=== PATIENT | male | born 1940 | race Caucasian/White ===

== ENCOUNTER 2018-03-02 08:12 | Emergency (ER) | payer OTHER, MEDICARE ==
--- NOTE | 2018-03-02 09:37 | EDPHY ---
H & P Time Seen by Provider: 03/02/18 08:59 HPI/ROS: CHIEF COMPLAINT: Head injury HISTORY OF PRESENT ILLNESS: 77-year-old male presents to the emergency department after he [place] the [place] just [place] to [place]. The patient is here visiting for the graduation and was walking down some steps and then there was no handrail and he tripped and fell and hit his head on the concrete steps. He did not lose consciousness. He does complain of a headache. He has some mild neck pain. He denies chest pain or difficulty breathing. He denies any presyncopal symptoms prior to his fall. He also complains of injury to the left hand. He states his tetanus shot is current. He was able to get up and walk around after the incident occurred just prior to arrival. He did have an episode of epistaxis which has since resolved. REVIEW OF SYSTEMS: Constitutional: No fever, no chills. Eyes: No double or blurry vision. ENT: No sore throat. Respiratory: No cough, no shortness of breath. Cardiac: No chest pain. Gastrointestinal: No abdominal pain, vomiting or diarrhea. Genitourinary: No dysuria. Musculoskeletal: Neck pain, no back pain. Skin: Lacerations, abrasions. No rashes. Neurological: Mild headache. Past Medical/Surgical History: Atrial fibrillation, pacemaker Social History: , visiting from [place] Smoking Status: Former smoker Physical Exam: General Appearance: Alert, no distress. Mentating normally and answering questions appropriately. 150/102, heart rate 71 Eyes: Pupils equal and round. Extraocular motions are all intact. ENT: Mouth: Mucous membranes moist. Hearing aid present in the left ear. Dried blood noted in his nose. Respiratory: No wheezing, rhonchi, or rales, lungs are clear to auscultation. Cardiovascular: Regular rate and rhythm. Gastrointestinal: Abdomen is soft and nontender, no masses, no rebound or guarding, bowel sounds normal. Neurological: Alert and oriented x 3, cranial nerves II through XII grossly intact Skin: Large irregular stellate laceration to the central forehead. There is also a smaller 1 cm laceration over the bridge of the nose. Warm and dry, no rashes. Musculoskeletal: Mild diffuse tenderness with palpation along cervical spine. He does have pain with range of motion of his neck. Nontender to palpate along thoracic or lumbar spine. Extremities: Full range of motion and no peripheral edema. Pain with palpation over the left 5th metacarpal. No rotational deformities noted. Some superficial skin tear is a and abrasions to the lateral dorsal aspect of his left hand. Hematoma noted to the anterior left mid thigh. No palpable bony tenderness or deformity in his lower extremities. Psychiatric: Patient is oriented X 3, there is no agitation. Constitutional: Initial Vital Signs Temperature (C) 36.9 C 03/02/18 08:15 Heart Rate 71 03/02/18 08:15 Respiratory Rate 18 03/02/18 08:15 Blood Pressure 150/102 H 03/02/18 08:15 O2 Sat (%) 99 03/02/18 08:15 O2 Delivery Mode Room Air Allergies/Adverse Reactions: No Known Allergies Allergy (Unverified 03/02/18 08:18) Home Medications: Medication Instructions Recorded Eliquis 03/02/18 Metoprolol Succinate 03/02/18 Vitamin D2 (*) 03/02/18 Medical Decision Making - Diagnostics Imaging: I viewed and interpreted images myself Procedures: Laceration repair #1. Verbal consent was obtained from the patient. The 4 cm irregular stellate laceration on the anterior forehead was anesthetized using 1% lidocaine with epinephrine. The wound was irrigated with saline, draped and explored to its base with a gloved finger. There were no deep structures involved. No tendon injury was identified. The wound was repaired with 6 0 Prolene, 10 sutures. The wound repair was complex. The procedure was performed by myself. Laceration repair #2. Verbal consent was obtained from the patient. The 1 cm laceration on the bridge of nose was anesthetized using 1% lidocaine with epinephrine. The wound was irrigated with saline, draped and explored to its base with a gloved finger. There were no deep structures involved. The wound was repaired with 6 0 Prolene, 3 sutures. The wound repair was simple. The procedure was performed by myself. ED Course/Re-evaluation: 77-year-old male presents to the emergency department after mechanical fall sustaining facial lacerations. The wounds were repaired, see procedure note. CT imaging of the head and cervical spine reveal no intracranial bleeding or fractures. Patient did have a small cyst noted near 1 of the ventricles. Radiologist recommended follow-up with his primary care provider. No additional imaging studies were needed in the emergency department. He was given closed-head injury precautions. Instructed to return if any change in symptoms or felt worse in any way. Differential Diagnosis: Head injury including but not limited to concussion, skull fracture, intraparenchymal contusion, subarachnoid, subdural and epidural hematoma. Neck pain including but not limited to muscular pain, herniated disc, spine fracture Departure - Departure Disposition: Home, Routine, Self-Care Clinical Impression: Forehead laceration Qualifiers: Encounter type: initial encounter Qualified Code(s): S01.81XA - Laceration without foreign body of other part of head, initial encounter Head injury Qualifiers: Encounter type: initial encounter Qualified Code(s): S09.90XA - Unspecified injury of head, initial encounter Condition: Good Instructions: Cervical Strain (ED), Care For Your Stitches (ED), Laceration (ED ), Head Injury (ED), Acute Wounds (ED) Additional Instructions: Wound Care Follow-Up: Removal of sutures in 5 days. Suture removal is complimentary in uncomplicated cases. Infection or abnormal findings would require reevaluation by the MD. In that case, you may be billed. Return to the emergency department if you notices any signs or symptoms of infection such as redness, swelling, increased pain, fever, purulent drainage. Return also if you develop worsening headache, vomiting, altered mental status, or any other concerns. Follow up with your primary care provider regarding cyst seen on CT scan of your brain. Referrals: NONE *PRIMARY CARE P,. [Primary Care Provider] - As per Instructions
[2018-03-07 13:14] VITALS: BP 127/82
== END 2018-03-02 12:15 | disposition home or self-care (01) ==
PROC: 0HQ1XZZ Repair Face Skin, External Approach (ICD-10-PCS; principal; 2018-03-02)
PROC: 09QKXZZ Repair Nasal Mucosa and Soft Tissue, External Approach (ICD-10-PCS; 2018-03-02)
DX: S01.81XA Laceration without foreign body of other part of head, initial encounter (principal); S01.21XA Laceration without foreign body of nose, initial encounter; Z87.891 Personal history of nicotine dependence; Z95.0 Presence of cardiac pacemaker; W10.8XXA Fall (on) (from) other stairs and steps, initial encounter; Y92.89 Other specified places as the place of occurrence of the external cause; Y99.8 Other external cause status; Y93.01 Activity, walking, marching and hiking